=== PATIENT | male | born 1955 | race Caucasian/White ===

== ENCOUNTER 2020-09-01 02:35 | Emergency (ER) | payer OTHER ==
[2020-09-01 03:10] LABS: HEMOGLOBIN 17.8 gm/dl (14.0-17.5); RED BLOOD COUNT 5.89 M/UL (4.20-5.50); WHITE BLOOD COUNT 9.4 K/UL (4.5-11.0)
[2020-09-01 03:35] LABS: BUN/CREATININE RATIO 14 (0-10)
[2020-09-01] MEDS ORDERED: DRAMAMINE LESS25 MG PO (05:56)
[2020-09-01] MEDS ORDERED: PRINIVIL20 MG PO (05:56)
[2020-09-01] MEDS ORDERED: ZOFRAN4 MG PO (05:56)
== END 2020-09-01 13:25 | disposition home or self-care (01) ==
LOC: ER1 02:35
PROVIDERS: Family Medicine; Physician Assistant Medical
DX: E86.0 Dehydration (principal); R42 Dizziness and giddiness; R11.2 Nausea with vomiting, unspecified; I10 Essential (primary) hypertension; Z91.14 Patient's other noncompliance with medication regimen; F15.10 Other stimulant abuse, uncomplicated; F17.210 Nicotine dependence, cigarettes, uncomplicated; Z79.899 Other long term (current) drug therapy
CPT/HCPCS: 70450; 71045; 80053; 80307; 81001; 82550; 82553; 83605; 83690; 83735; 83874; 84439; 84443; 84484; 85025; 93005; 96374; 96375; 99285; G0480; J2405; J7030